=== PATIENT | female | born 1990 | race African-American/Black ===

== ENCOUNTER 2020-08-26 13:20 | Emergency (ER) | payer MEDICAID ==
[~2020-08-26] VITALS: Ht 152.4 cm; Wt 65.0 kg
[~2020-08-26 13:20] MED LIST: INSASP SQ; LEVVL SQ; SYRI-1345 MC; URIN1STR MC; [UNRECOGNIZED DRUG - CODE] MC; [UNRECOGNIZED DRUG - CODE] MC
[2020-08-26 13:32] VITALS: BP 132/94
== END 2020-08-26 13:40 | disposition left against medical advice (07) ==
LOC: ER 13:20
DX: R07.89 Other chest pain (principal); E11.9 Type 2 diabetes mellitus without complications; Z79.4 Long term (current) use of insulin
CPT/HCPCS: 93005; 99283; Z7610

== ENCOUNTER 2025-04-01 11:43 | Emergency (ER) | payer MEDICAID ==
[~2025-04-01] VITALS: Ht 152.4 cm; Wt 64.0 kg
[2025-04-01 11:55] VITALS: TEMP 37.2; O2SAT 98
[2025-04-01] MEDS: ACETAMINOPHEN 325MG TABLET PO ONE (12:37)
[2025-04-01] MEDS ORDERED: NIRM1TAB11 PO (13:16)
[2025-04-01 14:19] VITALS: BP 137/92; PULSE 89; RESP 18; O2SAT 100
== END 2025-04-01 14:25 | disposition home or self-care (01) ==
LOC: ER 11:43
DX: U07.1 COVID-19 (principal); J06.9 Acute upper respiratory infection, unspecified; E11.9 Type 2 diabetes mellitus without complications; Z79.899 Other long term (current) drug therapy
CPT/HCPCS: 71045; 87426; 99284